=== PATIENT | female | born 1945 | race African-American/Black ===

== ENCOUNTER 2024-05-20 09:54 | Emergency (ER) | payer OTHER ==
[2024-05-20 10:02] VITALS: BMI 22.7
[2024-05-20 11:02] LABS: PH,URINE 6.5 (5.0-8.0); URINE APPEARANCE CLEAR; URINE BILIRUBIN NEGATIVE (NEGATIVE); URINE COLOR YELLOW; URINE GLUCOSE (UA) NEGATIVE (NEGATIVE); URINE KETONE NEGATIVE (NEGATIVE); URINE LEUK ESTERASE NEGATIVE (NEGATIVE); URINE NITRITE NEGATIVE (NEGATIVE); URINE PROTEIN NEGATIVE (NEGATIVE); URINE UROBILINOGEN 0.2 mg/dL (0.2-1.0)
[2024-05-20 11:03] LABS: BASO % 0.6 % (0-2.0); HEMATOCRIT 41.4 % (32.4-45.2); HEMOGLOBIN 14.5 GM/dL (10.7-15.3); LYMPH % 30.9 % (8-40); MCH 30.5 pg (25.7-33.7); MCHC 35.1 g/dl (32.0-36.0); MONO % 8.5 % (3.8-10.2); RBC 4.76 M/mm3 (3.60-5.2); WHITE BLOOD COUNT 7.4 K/mm3 (4.0-10.0)
[2024-05-20 11:21] LABS: POTASSIUM 3.8 mmol/L (3.5-5.1)
[2024-05-20 11:23] LABS: ALBUMIN 4.1 g/dl (3.4-5.0); CALCIUM 9.7 mg/dL (8.5-10.1)
[2024-05-20 11:24] LABS: BLOOD UREA NITROGEN 8.9 mg/dL (7-18); MAGNESIUM 2.2 mg/dL (1.8-2.4)
[2024-05-20 11:27] LABS: CREATININE 0.6 mg/dL (0.55-1.3)
[2024-05-20 11:28] LABS: BILIRUBIN,TOTAL 0.6 mg/dL (0.2-1); TOT PROT 7.9 g/dl (6.4-8.2)
[2024-05-20 12:27] LABS: MEAN PLT VOLUME 7.3 fl (7.5-11.1); PLATELET COUNT 290 10^3/uL (134-434)
[2024-05-20 14:24] VITALS: BP 133/58; PULSE 80; RESP 20; TEMP 98.1
== END 2024-05-20 16:48 | disposition home or self-care (01) ==
LOC: JER 09:54
DX: I10 Essential (primary) hypertension (principal); G45.3 Amaurosis fugax; R00.2 Palpitations; R42 Dizziness and giddiness; R51.9 Headache, unspecified
CPT/HCPCS: 36415; 70450-TC; 80053; 81003; 83735; 84484; 85025; 85651; 87086; 93005; 93010; 93880-TC; 99285-25